=== PATIENT | male | born 2000 | race Caucasian/White ===

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

== ENCOUNTER → 2020-01-07 08:18 | Outpatient (CLI) | payer SELFPAY ==
--- NOTE | 2020-01-07 08:22 | CA_ITS ---
APPROVED REPORT EXAM: Comprehensive 2D, Doppler, and color-flow Echocardiogram Pre Assembly Wirer: Carol Christian CRT Ht: 5 ft 10 in Wt: 160lbs BSA: 1.90 BP: 110/70 mmHg Indications: CP 2D Dimensions LVOT 1.92 cm (M/F) 1.5-2.5 M-Mode Dimensions RVDd 2.70 cm (0.9-2.6) LA Diam 2.74 cm (1.9-4.0) LVDd 4.75 cm (3.5-5.7) Ao Diam 2.97 cm (2.0-3.7) LVDs 3.80 cm (3.5-5.7) IVSd 0.65 cm (0.6-1.1) PWd 0.68 cm (0.6-1.1) EF (Teich) 40.90% FS 20.00% EDV (Teich) 104.90 mL ESV (Teich) 62.00 mL LV Diastology E Decel Time 203.00 (160-240 msec) E/A Ratio 1.8 MED E' 11.10 (< 7 cm/sec) E'/MED E' Ratio 9.49 (>14) LAT E' 16.90 (<10 cm/sec) E/LAT E' Ratio 6.23 (>14) Mitral Valve MV E Max Anmol. 105.00 (40-130 cm/s) MV A Velocity 58.00 (40-130 cm/s) E/A Ratio 1.82 MV Decel. Time 203.00 (160-240 ms) MV PHT 60.00 ms Left Ventricle Left atrium is normal size, left ventricle is normal size, there is no concentric left ventricular hypertrophy, visually estimated ejection fraction 55% with no regional wall motion abnormality, diastolic parameters are within normal range. Right Ventricle Right atrium and right ventricular normal size and contractility. Aortic Valve Aortic valve is normal, there is no aortic stenosis aortic insufficiency. Mitral Valve Mitral valve is normal, there is no mitral stenosis or mitral regurgitation. Tricuspid Valve Tricuspid valve grossly normal, there is no tricuspid regurgitation. Pulmonic Valve Pulmonic valve is poorly visualized. Great Vessels Aortic root is normal size. Pericardium No significant pericardial effusion noted Conclusion 1. Normal left ventricular size, preserved left ventricular systolic function, visually estimated ejection fraction 55% with no regional wall motion abnormality, diastolic parameters are within normal range. 2. No significant pericardial effusion noted 3. Normal transthoracic echocardiogram. Electronically signed by : Ronny Corona, 01/07/2020 14:38:07
== END ==
PROVIDERS: PCP Family Medicine; Visit Provider Family Medicine
DX: R55 Syncope and collapse (principal)
CPT/HCPCS: 93306

== ENCOUNTER 2021-11-16 09:14 | Emergency (ER) | payer SELFPAY ==
[2021-11-16 09:33] VITALS: BP 155/90; PULSE 83; RESP 20; O2SAT 96; BMI 25.8
--- NOTE | 2021-11-16 09:47 | EXP.UTC ---
Discharge Plan Disposition Patient Disposition: Home, Self-Care Prescriptions Prescriptions: No Action No Known Home Medications Referrals Follow up/Referrals: Luis Gallego APRN [Primary Care Provider] - See instructions Tono Valdez MD [Staff Physician] - See instructions Activity Restrictions/Add. Instructions Additional Instructions/Restrictions: Follow-up with general surgery, Dr. Valdez, for evaluation for lipoma removal. Call for appointment. [id number] ibuprofen for back pain. Clinical Impressions Clinical Impression: Abnormal x-ray of pelvis, Lipoma, Lumbar strain Instructions Patient Instructions: Lipoma, DI for Low Back Pain, DI for Lipoma Removal Discharge ED Provider: Sebastián Montes [facility] [place] General Chief complaint: PAIN Stated complaint: knot on right hip, no accident Mode of Arrival: Ambulatory Source of Information: Patient Limitations: No Limitations Time Seen by Provider: 11/16/21 09:47 Description of Symptoms (Recalled from Triage Doc. by RN): Bump on the side of his right hip that he has had for several weeks. Stated he went to see a chiroprator and they did an xray that revealed a chip in his hip. States it is not very painful but bothersome HEENT Symptoms (Recalled from RN notes): No Resp Symptoms (Recalled from RN notes): No Skin Symptoms (Recalled from RN notes): No MS Symptoms (Recalled from RN notes): Yes Functional Status (Recalled from RN notes): na History of Present Illness Provider Complaint: Patient states that he noticed a lump on his right hip area several weeks back States that it wasnt painful but he started watching it States that he started having numbness, and twitching at times in the right leg and his hip felt odd States that they noticed the lump was getting larger so they went to the Chiropractor and got an xray States that she saw a chip in his hip area States that today they noticed the lump on his hip was larger and bothersome so he came in to get it checked out Related Data Home Medications Medication Instructions Recorded Confirmed No Known Home Medications 11/16/21 11/16/21 Allergies Allergy/AdvReac Type Severity Reaction Status Date / Time No Known Allergies Allergy Verified 11/16/21 10:04 Worker's Comp Is this a Worker's Comp case?: No [facility] Medical History (Updated 11/16/21 @ 12:26 by Sebastián Montes MD) No significant past medical history Social History Smoking Status: Never smoker alcohol intake: never current occupational status: employed Travel in the last 8 weeks: None ROS Obtained: Yes All systems reviewed & no additional complaints except as documented and Yes Systems reviewed as appropriate & no additional complaints except as documented ENT Ears, Nose, Mouth, and Throat: Reports system reviewed and no additional complaints, except as documented and Reports as per HPI Cardiovascular Cardiovascular: Reports system reviewed and no additional complaints, except as documented and Reports as per HPI Integumentary/Breasts Skin/Breast: Reports system reviewed and no additional complaints, except as documented, Reports as per HPI and Reports other Comments: lump on his left hip that has continued to get larger over the last month Physical Exam General General appearance: alert and in no apparent distress Respiratory Respiratory exam: Present normal lung sounds bilaterally; Absent respiratory distress Cardiovascular Cardiovascular exam: Present regular rate, normal rhythm and normal heart sounds Expanded Lower Extremity Exam Right: Leg image: 1. soft lump like area noted that patient reports is not painful that has continued to get larger over the last month Reports numbness in leg at times with twitching that goes down right leg Denies known injury Neurological Exam Neurological exam: Present alert, oriented X3 and normal gait Medical Decision Making Titus Inquiry Pt receivi
[2021-11-16 10:03] VITALS: BP 117/61; PULSE 97; RESP 18; TEMP 36.8; O2SAT 97; BMI 25.8
--- NOTE | 2021-11-16 10:03 | PC.NURSE ---
pt transferred from [facility] to room 9 in the ed by [facility] staff
--- NOTE | 2021-11-16 10:06 | PC.NURSE ---
at the bedside
--- NOTE | 2021-11-16 10:20 | CT_ITS ---
FINAL REPORT TECHNIQUE: After the administration of intravenous contrast, axial images were obtained through the abdomen and pelvis by computed tomography. The study was performed with techniques to keep radiation dose as low as reasonably achievable, (ALARA). Individual dose reduction techniques using automated exposure control or adjustment of mA and/or kV according to the patient's size were employed. CLINICAL HISTORY: fx R pelvis on xray and soft tissue mass R hip FINDINGS: Abdomen: The lung bases are clear. The liver parenchyma is homogeneous. The gallbladder is present. The spleen is unremarkable. The adrenals are normal. The pancreas is unremarkable. The kidneys enhance appropriately. The aorta is normal in caliber. There is no free fluid or adenopathy. Pelvis: The appendix is unremarkable. There is a large ossific density at the lateral margin of the right acetabulum measuring 2.7 x 0.8 cm in AP and transverse dimension. Finding is well seen on image 100 of series 3, could be related to an ununited fracture fragment or large os acetabuli. No definite soft tissue mass is identified. The urinary bladder is unremarkable. There is no free fluid or adenopathy. IMPRESSION: Well corticated ossific density, may be related to an ununited fracture fragment versus os acetabuli. Reviewed, Interpreted and Dictated by Elliott Ornelas MD Transcribed by Genia Lubin Authenticated and [facility]
--- NOTE | 2021-11-16 10:20 | CT_ITS ---
FINAL REPORT TECHNIQUE: Axial images were performed through the lumbar spine by computed tomography. Sagittal reconstruction images were also performed. This study was performed with techniques to keep radiation doses as low as reasonably achievable, (ALARA). Individualized dose reduction techniques using automated exposure control or adjustment of mA and/or kV according to the patient''s size were employed. CLINICAL HISTORY: back pain, r/o fx FINDINGS: No fracture or subluxation is identified. The vertebral bodies demonstrate normal height. The disc spaces are well preserved. T12-L1: No significant disc bulge or protrusion. L1-2: No significant disc bulge or protrusion. L2-3: Mild annular prominence is present. There is no significant canal stenosis or neural foraminal narrowing. L3-4: Mild annular prominence is present. There is no significant canal stenosis or neural foraminal narrowing. L4-5: Mild annular prominence with mild bilateral neural foraminal narrowing. L5-S1: Mild annular prominence is present. There is no significant canal stenosis or neural foraminal narrowing. IMPRESSION: Mild annular prominence from L2-3 through L5-S1 with mild neural foraminal narrowing at L4-5. Reviewed, Interpreted and Dictated by Elliott Ornelas MD Transcribed by Genia Lubin Authenticated and [facility]
--- NOTE | 2021-11-16 10:21 | HMH.EDGENADL ---
Discharge Plan Disposition Patient Disposition: Home, Self-Care Prescriptions Prescriptions: No Action No Known Home Medications Referrals Follow up/Referrals: Luis Gallego APRN [Primary Care Provider] - See instructions Tono Valdez MD [Staff Physician] - See instructions Activity Restrictions/Add. Instructions Additional Instructions/Restrictions: Follow-up with general surgery, Dr. Valdez, for evaluation for lipoma removal. Call for appointment. [id number] ibuprofen for back pain. Clinical Impressions Clinical Impression: Abnormal x-ray of pelvis, Lipoma, Lumbar strain Instructions Patient Instructions: Lipoma, DI for Low Back Pain, DI for Lipoma Removal Discharge ED Provider: Sebastián Montes General Adult HPI General Chief complaint: PAIN Stated complaint: knot on right hip, no accident Time Seen by Provider: 11/16/21 09:47 Mode of Arrival: Ambulatory Source of Information: Patient Limitations: No Limitations Description of Symptoms (Recalled from ER Triage Doc. by RN): pt was having back pain and was seen at the chiroprator who found a right sided hip chip on his x-ray and was sent in for further evaulation from [facility] for the knot on the right side and x-ray findings History of Present Illness HPI narrative: The patient is sent from the urgent treatment center. The patient saw a chiropractor today. He has been having low back pain for about a week. He also has a soft tissue mass on his lateral right hip which has been present for over a year, but over the past week is gotten larger. He occasionally has some popping and spasms in his right hip. He does not recall any injury, but does do a lot of physical activity. The chiropractor performed an x-ray of his pelvis because of the soft tissue mass, and noted that he has a fracture of the right side of his pelvis superior portion of the acetabulum. The chiropractor advised that he should follow-up in some fashion for this finding, and therefore he came to the urgent treatment center. He is sent from the urgent treatment center to the emergency room because it was felt he needed CT scans. Soft tissue mass is not painful or tender but does bother him when he wears a tool belt. He does not have any numbness or weakness of the legs and no loss of bowel or bladder control. Related Data Home Medications Medication Instructions Recorded Confirmed No Known Home Medications 11/16/21 11/16/21 Allergies Allergy/AdvReac Type Severity Reaction Status Date / Time No Known Allergies Allergy Verified 11/16/21 10:04 [facility] Medical History (Updated 11/16/21 @ 12:26 by Sebastián Montes MD) No significant past medical history Social History Smoking Status: Never smoker ROS Obtained: Yes Systems reviewed as appropriate & no additional complaints except as documented Constitutional Constitutional: Denies fever(s) and Denies weakness Gastrointestinal Gastrointestingal: Denies vomiting Musculoskeletal Musculoskeletal: Reports back pain and Denies numbness Neurologic Neurologic: Denies numbness and Denies weakness Physical Exam General General appearance: alert and in no apparent distress Head Head exam: atraumatic and normocephalic Eye Eye exam: Present normal appearance and EOMI ENT ENT exam: Present mucous membranes moist Neck Neck exam: Present normal inspection and trachea midline Chest Chest inspection: Present normal inspection and symmetric chest wall rise Respiratory Respiratory exam: Absent respiratory distress Cardiovascular Cardiovascular exam: Present regular rate, normal rhythm and normal heart sounds Expanded Lower Extremity Exam Right: Hip/Pelvis exam: Present full ROM; Absent tenderness, pelvis stable, swelling, ecchymosis, deformity, dislocation, external rotation, internal rotation, shortening of leg, pain on hip/pelvis palpation or hip pain on leg movement Leg image: 1. Soft tissue m
--- NOTE | 2021-11-16 10:28 | PC.NURSE ---
BLOOD SENT TO LAB
[2021-11-16 10:30] VITALS: BP 144/73; PULSE 73; RESP 17; O2SAT 98
[2021-11-16 10:33] LABS: Basophils # 0.2 K/mm3 (0-0.2); Basophils % 3.4 % (0.1-2.0); Eosinophils # 0.3 K/mm3 (0.0-0.4); Eosinophils % 4.7 % (0.1-12.0); Hemoglobin 16.4 g/dL (14.1-18.0); Lymphocytes # 1.9 K/mm3 (0.7-4.5); Lymphocytes % 32.6 % (10-50); Mean Corpuscular HGB Conc 32.1 g/dL (31.8-35.4); Mean Corpuscular Hemoglobin 29.1 pg (27.0-31.2); Mean Corpuscular Volume 90.7 fl (80-94); Mean Platelet Volume 7.7 fl (7.4-10.4); Monocytes # 0.4 K/mm3 (0.1-1.0); Monocytes % 6.4 % (1.7-9.3); Neutrophils # 3.1 K/mm3 (1.8-7.8); Neutrophils % 52.8 % (37.0-80.0); Platelet Count 252 K/mm3 (142-424); Red Blood Count 5.63 M/mm3 (4.60-6.20); Red Cell Distribution Width 13.2 % (11.5-17.5); White Blood Count 5.9 K/mm3 (4.8-10.8)
--- NOTE | 2021-11-16 10:33 | PC.NURSE ---
pt to rad at this time
--- NOTE | 2021-11-16 10:33 | PC.NURSE ---
PT GOING TO CT
[2021-11-16 10:42] LABS: Chloride 104 mmol/L (98-107); Potassium 4.5 mmoL/L (3.5-5.1); Sodium 139 mmol/L (136-145)
[2021-11-16 10:45] LABS: Anion Gap 9.5 mEq/L (5-15); Blood Urea Nitrogen 15 mg/dl (9-20); Calcium 8.3 mg/dl (8.4-10.2); Carbon Dioxide 30 mmol/L (22.0-30.0); Creatinine Clearance Estimated 150 mL/min (50-200); Estimated Glomerular Filt Rate 107 ml/min (>60); GFR (African American) 129 ML/MIN (>60); Glucose 86 mg/dl (74-100)
--- NOTE | 2021-11-16 10:53 | PC.NURSE ---
pt back from CT
--- NOTE | 2021-11-16 11:16 | PC.NURSE ---
rounded on pt at this time. no needs voiced
[2021-11-16 11:59] VITALS: BP 144/73; PULSE 76; RESP 18; O2SAT 95
--- NOTE | 2021-11-16 12:00 | PC.NURSE ---
rounded on pt, he and his parents did not have any needs at this time
--- NOTE | 2021-11-16 12:17 | PC.NURSE ---
calling rad to check the status of CT results
--- NOTE | 2021-11-16 12:18 | PC.NURSE ---
rad to fax preliminart CT report to ed
[2021-11-16 12:33] VITALS: BP 130/85; PULSE 82; RESP 17; TEMP 36.8; O2SAT 98
== END 2021-11-16 12:35 | disposition home or self-care (01) ==
LOC: UTC 09:37 → ER 09:50
PROVIDERS: Emergency Provider Emergency Medicine; PCP Nurse Practitioner Family
DX: D17.1 Benign lipomatous neoplasm of skin and subcutaneous tissue of trunk (principal); R93.7 Abnormal findings on diagnostic imaging of other parts of musculoskeletal system; S39.012A Strain of muscle, fascia and tendon of lower back, initial encounter
CPT/HCPCS: 72131; 74177; 80048; 85025; 99284; Q9967

== ENCOUNTER 2022-01-15 11:40 | Day surgery (SDC) | payer SELFPAY ==
[2022-01-15 13:13] VITALS: BP 151/77; PULSE 81; RESP 17; TEMP 37.1; O2SAT 98; BMI 22.8
--- NOTE | 2022-01-15 13:29 | P.PN_ITS ---
[facility] Medical History (Updated 01/15/22 @ 13:24 by Tea Arteaga, RN) No significant past medical history Surgical History (Updated 01/15/22 @ 13:24 by Tea Arteaga RN) No history of previous surgery Family History (Updated 01/15/22 @ 13:24 by Tea Arteaga, RN) Other No history of previous surgery Social History (Updated 01/15/22 @ 13:23 by Tea Arteaga RN) Smoking Status: Former smoker alcohol intake: never substance use type: denies use current occupational status: employed Travel in the last 8 weeks: None [facility] Anesthesia Checklist Patient Identification Patient Identification: Arm Band Structural Data Admitted From: Home Planned Operative Procedure/s: EGD Consent for Planned Operative Procedure(s) Verified: Yes Verified Documents: Surgical Consent and History and Physical NPO Status Verified Time NPO: 08:00 (water) Additional verifications Anesthesia Reactions: No Airway Assessment C-Spine Mobility Assessed: Yes TMJ Mobility Assessed: Yes Dentition: Good Dentition Neurological Assessment Level of Consciousness: Awake and Alert Anesthesia Plan Anesthesia Risk discussed: Yes Anesthesia Plan: Verified ASA Class: I Anesthesia Type: MAC
[2022-01-15 14:32] VITALS: O2SAT 99
[2022-01-15 14:50] VITALS: BP 114/68; PULSE 84; RESP 16; TEMP 36.6; O2SAT 95
--- NOTE | 2022-01-15 14:57 | P.PCN_ITS ---
Procedure: Date: 01/15/22 Patient Date of :: 2000 Procedure Performed:: Esophagogastroduodenoscopy with biopsies Indications:: Patient is a 21-year-old male. He has had symptoms of dysphagia consistent with possible obstruction for about 5 days. I was contacted for consideration of outpatient direct endoscopy. Patient states that his symptoms seem to be consistent with substernal pain occurring postprandially in the subxiphoid region with regurgitation. It seems to be even worse with water. He denies any specific inciting event. Please note: Patient did state that postprocedure his symptoms have been postprandial cramping epigastric pain and he has had regurgitation of foods with some liquid. He has recently developed loose stools and some diarrhea following the cramping pain. Etiology therefore may not be upper GI but could be some sort of gastroenteritis, functional disorder, biliary etiology. Performing Provider:: Nirmal Shaver MD Referring Provider:: Ashok Huitron Sedation:: MAC sedation Procedure:: Patient was taken to endoscopy procedure room. He was positioned in lateral decubitus position. Adequate intravenous sedation was achieved with anesthesia titration of propofol. Olympus endoscope was inserted via the oropharynx. Esophagus was cannulated. There was some tortuosity of the esophagus possibly consistent with esophageal dysmotility etiology. Overall however the esophagus appeared normal. Gastroesophageal junction was encountered. There was no evidence of any obstruction. No evidence of any significant esophagitis. Stomach was cannulated and insufflated. Retroflexion revealed no evidence of any hiatal hernia. There was some diffuse mild to moderate moderate nonerosive gastritis. Biopsies obtained for CLOtest for H. pylori. Prepyloric gastric b iopsy was obtained for histopathologic analysis. Pylorus was traversed and duodenum appeared unremarkable. Endoscope was withdrawn into the distal esophagus. Biopsies were obtained at the gastroesophageal junction. A couple of distal esophageal biopsies were obtained. Endoscope was withdrawn. Findings:: Possible esophageal dysmotility with some tortuosity of the esophagus Mild to moderate diffuse gastropathy/gastritis Recommendations:: Unclear as to the etiology. Follow-up on histopathology and biopsies. Treat as appropriate. If symptoms persist may need functional esophageal testing. It also sounds as though the potential exists for possible gastroenteritis, functional etiology, biliary etiology. Complications:: None immediate Estimated blood obtained (mL): 1
[2022-01-15 15:00] VITALS: BP 141/85; PULSE 76; RESP 16; O2SAT 97
[2022-01-15 15:10] VITALS: BP 134/81; PULSE 79; RESP 17; O2SAT 98
[2022-01-15 15:20] VITALS: BP 154/99; PULSE 64; RESP 18; O2SAT 99
== END 2022-01-15 15:30 | disposition home or self-care (01) ==
PROVIDERS: Visit Provider Surgery
PROC: 0DJ08ZZ Inspection of Upper Intestinal Tract, Via Natural or Artificial Opening Endoscopic (ICD-10-PCS; CPT 43235; principal; 2022-01-15 13:30)
DX: R13.10 Dysphagia, unspecified (principal); K29.70 Gastritis, unspecified, without bleeding
CPT/HCPCS: 43239; 87339

== ENCOUNTER 2023-01-19 22:33 | Emergency (ER) | payer SELFPAY ==
[2023-01-19 22:34] VITALS: BP 135/84; PULSE 83; RESP 16; TEMP 36.3; O2SAT 98; BMI 22.9
[2023-01-19 23:03] VITALS: BP 135/84; PULSE 83; RESP 16; TEMP 36.3; O2SAT 98
--- NOTE | 2023-01-19 23:04 | HMH.EDGENADL ---
Discharge Plan Disposition Patient Disposition: Home, Self-Care Prescriptions Prescriptions: No Action famotidine [Pepcid] 20 mg tablet 20 mg PO DAILY Qty: 30 2RF Referrals Follow up/Referrals: Provider,Referral, [Primary Care Provider] - See instructions Activity Restrictions/Add. Instructions Additional Instructions/Restrictions: There is a small residual rust ring no evidence of retained metallic foreign body in your cornea and this should resorb over time but you may follow-up with an communications editor if you would like to have this debrided and removed. Please take your topical antibiotics 3-4 times a day over the next week as discussed. Clinical Impressions Clinical Impression: Abrasion, corneal, Corneal rust ring of right eye Discharge ED Provider: Lanie Obando General Adult HPI General Chief complaint: Eye Problems Stated complaint: AO01/19 metal in eye Time Seen by Provider: 01/19/23 22:36 Mode of Arrival: Ambulatory Source of Information: Patient Limitations: No Limitations Description of Symptoms (Recalled from ER Triage Doc. 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 Denies vision changes. 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 Denies any vision changes his mother took look at his eye and states that she could see a metallic foreign body in his eye. Related Data Previous Rx's Medication Instructions Recorded famotidine 20 mg tablet (Pepcid) 20 mg PO DAILY #30 tabs 01/23/22 Allergies Allergy/AdvReac Type Severity Reaction Status Date / Time No Known Allergies Allergy Verified 01/23/22 12:55 [facility] Disclaimer: The information contained in this section may have been updated after the patient was seen, as this information can be updated by other users. Medical History (Updated 01/19/23 @ 22:50 by Lanie Obando MD) No significant past medical history Surgical History (Updated 01/23/22 @ 12:56 by MICHELLE Puga) History of esophagogastroduodenoscopy (EGD) No history of previous surgery Family History Other No history of previous surgery Social History Smoking Status: Never smoker alcohol intake: never substance use type: denies use current occupational status: employed Travel in the last 8 weeks: None ROS Obtained: Yes All systems reviewed & no additional complaints except as documented Physical Exam General General appearance: alert Expanded Eye Exam Slit lamp exam: performed Both Eyes Image: 1. On slit-lamp evaluation there is no metallic foreign body there is a superficial corneal abrasion with fluorescein and tetracaine and there is a small rust ring in the identified area Respiratory Respiratory exam: Present normal lung sounds bilaterally Cardiovascular Cardiovascular exam: Present regular rate Neurological Exam Neurological exam: Present alert and oriented X3 Medical Decision Making Titus Inquiry Pt receiving controlled substance: No Vital Signs: 01/19/23 22:34 Temperature 97.4 F L Temperature Source Oral Pulse Rate [Right] 83 Respiratory Rate 16 Blood Pressure [Right Arm] 135/84 Blood Pressure Mean [Right Arm] 101 Blood Pressure Source [Right Arm] Automatic Cuff Blood Pressure Position [Right Arm] Sitting 02 Sat by Pulse Oximetry 98 Oxygen Delivery Method Room Air Orders (Tests/Meds): ED MEDICATIONS Discontinued Medications Generic Name Dose Route Start Las
== END 2023-01-19 23:06 | disposition home or self-care (01) ==
PROVIDERS: Emergency Provider Student in an Organized Health Care Education/Training Program
DX: H16.021 Ring corneal ulcer, right eye (principal); S05.01XA Injury of conjunctiva and corneal abrasion without foreign body, right eye, initial encounter; W44.8XXA Other foreign body entering into or through a natural orifice, initial encounter
CPT/HCPCS: 99283

== ENCOUNTER 2023-03-26 20:57 | Outpatient (CLI) | payer SELFPAY ==
[2023-03-26 18:35] LABS: Basophils % 0.8 % (0.1-2.0); Eosinophils # 0.1 K/mm3 (0.0-0.4); Eosinophils % 3.1 % (0.1-12.0); Hematocrit 48.6 % (42.0-52.0); Hemoglobin 16.3 g/dL (14.1-18.0); Lymphocytes # 1.7 K/mm3 (0.7-4.5); Lymphocytes % 36.9 % (10-50); Mean Corpuscular HGB Conc 33.5 g/dL (31.8-35.4); Mean Corpuscular Hemoglobin 29.4 pg (27.0-31.2); Mean Corpuscular Volume 87.8 fl (80-94); Mean Platelet Volume 9.1 fl (7.4-10.4); Monocytes # 0.4 K/mm3 (0.1-1.0); Monocytes % 7.7 % (1.7-9.3); Neutrophils # 2.4 K/mm3 (1.8-7.8); Neutrophils % 51.6 % (37.0-80.0); Platelet Count 210 K/mm3 (142-424); Red Blood Count 5.53 M/mm3 (4.60-6.20); Red Cell Distribution Width 12.8 % (11.5-17.5); White Blood Count 4.6 K/mm3 (4.8-10.8)
[2023-03-26 18:41] LABS: Alanine Aminotransferase 23 U/L (12-78); Albumin Level 3.6 g/dl (3.5-5.0); Albumin/Globulin Ratio 1.7 (1.1-1.8); Alkaline Phosphatase 57 U/L (38-126); Anion Gap 8.4 mEq/L (5-15); Aspartate Amino Transferase 24 U/L (17-59); Bilirubin,Total 0.4 mg/dl (0.2-1.3); Blood Urea Nitrogen 14 mg/dl (9-20); Calcium 8.9 mg/dl (8.4-10.2); Carbon Dioxide 30 mmol/L (22.0-30.0); Chloride 105 mmol/L (98-107); Chol/HDL Ratio 4.2 (1-3.5); Cholesterol 152 mg/dl (140-200); Estimated Glomerular Filt Rate 106 ml/min (>60); GFR (African American) 128 ML/MIN (>60); Globulin 2.1 g/dL (1.3-3.2); Glucose 94 mg/dl (74-100); HDL Cholesterol 36 mg/dl (40-60); Potassium 4.4 mmoL/L (3.5-5.1); Sodium 139 mmol/L (136-145); Total Protein,Serum 5.7 g/dl (6.3-8.2); Triglycerides 59 mg/dl (30-150); VLDL Cholesterol 12 mg/dL (0-40)
[2023-03-26 18:53] LABS: Direct LDL Cholesterol 94.83 mg/dL (100-129)
[2023-03-26 19:12] LABS: Thyroid Stimulating Hormone 1.32 uIU/mL (0.465-4.68)
[2023-03-26 20:11] LABS: 25-OH Vitamin D, Total 15.5 ng/mL (30-100)
== END 2023-03-26 23:59 ==
LOC: LAB.DROPOF 20:58
PROVIDERS: PCP Student in an Organized Health Care Education/Training Program; Visit Provider Student in an Organized Health Care Education/Training Program
DX: R07.81 Pleurodynia (principal); R10.11 Right upper quadrant pain
CPT/HCPCS: 80053; 80061; 82306; 84443; 85025; 87086